=== PATIENT | female | born 1990 | race Two or more races ===

== ENCOUNTER 2019-08-04 20:22 | Emergency (ER) | payer SELFPAY ==
[~2019-08-04] VITALS: Ht 165.1 cm; Wt 56.7 kg
--- NOTE | 2019-08-04 20:40 | NUR ---
BIBFRIEND C/O LEFT SIDED CHEST PAIN X1 MONTH, ON AND OFF, PATIENT DESCRIBES IT "HEAVY AND DISCOMFORT, NON-RADIATING. -SOB, -NAUSEA/-VOMITTING, -DIZZINESS, -COUGH, TO ER BED 12, HOOKED TO CHEMICAL PUMPER AND POX, CHANGED T0 HOSP GOWN, WARM BLANKET PROVIDED, PATIENT AOx4 , BREATHING EVEN AND UNLABORED, NAD NOTED, AWAITING MD MCCARTHY.
--- NOTE | 2019-08-04 20:58 | NUR ---
DR PIZARRO AT BEDSIDE
[2019-08-04 21:18] LABS: BASOPHILS % (AUTO) 0.7 % (0.0-2.0); EOSINOPHILS % (AUTO) 1.4 % (0.0-6.0); HEMATOCRIT 38 % (33-45); HEMOGLOBIN 12.8 g/dL (11.5-14.8); LYMPHOCYTES # (AUTO) 2.7 /CMM (0.8-4.8); LYMPHOCYTES % (AUTO) 39.8 % (20.0-44.0); MEAN CORPUSCULAR HGB CONC 34 g/dl (31.0-36.0); MEAN CORPUSCULAR VOLUME 95 fL (82-100); MONOCYTES # (AUTO) 0.6 /CMM (0.1-1.30); MONOCYTES % (AUTO) 8.1 % (2.0-12.0); NEUTROPHILS # (AUTO) 3.4 /CMM (1.8-8.9); PLATELET COUNT (AUTO) 159 /CMM (150-450); RED BLOOD CELL COUNT(AUTO) 3.99 MIL/uL (4.0-5.2); WHITE BLOOD COUNT (AUTO) 6.9 K/uL (4.3-11.0)
[2019-08-04 21:43] LABS: CALCIUM, SERUM 9.1 mg/dL (8.5-10.1); CARBON DIOXIDE 27 mmol/L (21-32); CHLORIDE 107 mmol/L (98-107); CREATININE 0.8 mg/dL (0.6-1.3); GLUCOSE 91 mg/dL (74-106); POTASSIUM 4.3 mmol/L (3.5-5.1); SODIUM SERUM 143 mmol/L (136-145); UREA NITROGEN, BLOOD 12 mg/dL (7-18)
--- NOTE | 2019-08-04 22:52 | NUR ---
Patient discharged to home in stable condition. Written and verbal after care instructions given. Patient verbalizes understanding of instruction.
[2019-08-04 22:54] VITALS: BP 119/51
== END 2019-08-04 22:54 | disposition home or self-care (01) ==
LOC: ER 20:22
DX: R07.89 Other chest pain (principal); F10.10 Alcohol abuse, uncomplicated; F17.200 Nicotine dependence, unspecified, uncomplicated; Y90.9 Presence of alcohol in blood, level not specified; Z60.2 Problems related to living alone; Z98.82 Breast implant status
CPT/HCPCS: 36415; 71045-TC; 80048-TC; 84484-TC; 84702-TC; 85025-TC; 85378-TC